=== PATIENT | male | born 1980 | race Caucasian/White ===

== ENCOUNTER 2017-12-10 11:25 | Emergency (ER) | payer OTHER ==
--- NOTE | 2017-12-10 12:10 | ER Document Report ---
HPI - HPI Patient complains to provider of: Right hand numbness and weakness Onset: Last week Onset/Duration: Persistent Quality of pain: Achy Pain Level: 2 Context: Patient presents complaining of numbness and weakness to right forearm wrist and hand. Patient states he has had the symptoms for the past week. Patient states that he woke up with right hand weakness and an inability to fully extend his fingers. Patient is right-hand dominant. Patient does report having 3 previous shoulder surgeries on the right with the last performed 3 years ago. Patient does report having trigger finger surgery on the right hand involving fingers 2 and 3 7 years ago. Patient does report a history of previous TBI. Patient reports occasional migraines but denies any headache symptoms at this time. Associated Symptoms: Other - Right hand numbness and weakness. denies: Headache Exacerbated by: Denies Relieved by: Denies Similar symptoms previously: No Recently seen / treated by doctor: No - ROS ROS below otherwise negative: Yes Systems Reviewed and Negative: Yes All other systems reviewed and negative - CONSTITUTIONAL Constitutional: DENIES: Fever, Chills - NEURO Neurology: REPORTS: Weakness - Right hand. DENIES: Headache - CARDIOVASCULAR Cardiovascular: DENIES: Chest pain - GASTROINTESTINAL Gastrointestinal: DENIES: Nausea, Patient vomiting - MUSCULOSKELETAL Musculoskeletal: REPORTS: Extremity pain - Right forearm. DENIES: Back Pain, Neck Pain - DERM Skin Color: Normal Skin Problems: None Past Medical History - General Information source: Patient - Social History Smoking Status: Current Every Day Smoker Chew tobacco use (# tins/day): No Smoking Education Provided: Yes Frequency of alcohol use: None Drug Abuse: None Occupation: None Lives with: Spouse/Significant other Family History: Reviewed & Not Pertinent Patient has suicidal ideation: No Patient has homicidal ideation: No Neurological Medical History: Reports: Hx Migraine Renal/ Medical History: Denies: Hx Peritoneal Dialysis Psychiatric Medical History: Reports: Hx Anxiety, Hx Depression, Hx Post Traumatic Stress Disorder Traumatic Medical History: Reports: Hx Traumatic Brain Injury Past Surgical History: Reports: Hx Oral Surgery, Hx Orthopedic Surgery - Right shoulder, right hand Vertical Provider Document - CONSTITUTIONAL Agree With Documented VS: Yes Exam Limitations: No Limitations General Appearance: WD/WN, No Apparent Distress - INFECTION CONTROL TRAVEL OUTSIDE OF THE [place] IN LAST 30 DAYS: No - HEENT HEENT: Atraumatic, Normocephalic - NECK Neck: Normal Inspection - RESPIRATORY Respiratory: Breath Sounds Normal, No Respiratory Distress - CARDIOVASCULAR Cardiovascular: Regular Rate, Regular Rhythm Pulses: Normal: Radial - BACK Back: Normal Inspection - MUSCULOSKELETAL/EXTREMETIES Musculoskeletal/Extremeties: No Edema - NEURO Level of Consciousness: Awake, Alert, Appropriate Motor/Sensory: negative: No Motor Deficit, No Sensory Deficit Notes: Patient with weakened breaker up to right hand. Patient presents with inability to fully extend the fingers of the right hand. Patient able to flex right wrist but unable to fully extend the right wrist. Patient with numbness over the right thumb second and third fingers over the dorsal aspect of the right hand and dorsal aspect of right forearm. Patient able to oppose all fingers with the right thumb. When patient has hand pronated he is able to extend the fingers. - DERM Integumentary: Warm, Dry, No Rash Course - Re-evaluation Re-evalutation: 12/10/17 12:[address] Smart who agrees to evaluate patient. 12/10/17 12:12 Dr. Smart to bedside for examination. States patient has symptoms concerning for both radial and ulnar nerve deficit. Recommends noncontrasted head CT as well as consultation with orthopedics. 12/10/17 12:[address] Marin regarding patient presentation and diagnostic. Discussed patient's physical exam findings. Discussed concern about possible ulnar and radial nerve palsy. Does not recommend any immobilization at this time and advises follow-up in the office for further evaluation. 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 Marin or Dr. Mcwilliams, call the office today to make a follow -up appointment Forms: Smoking Cessation Education Referrals: JB MCWILLIAMS DO [ACTIVE STAFF] - Follow up as needed MARYCRUZ MARIN MD [ACTIVE STAFF] - Follow up tomorrow
--- NOTE | 2017-12-10 12:40 | RADIOLOGY REPORT (SQ) ---
EXAM DESCRIPTION: CT HEAD WITHOUT COMPLETED DATE/TIME: 12/10/2017 12:31 pm REASON FOR STUDY: r hand weakness, numbness COMPARISON: None. TECHNIQUE: Axial images acquired through the brain without intravenous contrast. Images reviewed wi th bone, brain and subdural windows. Additional sagittal and coronal reconstructions were generated. Images stored on PACS. All CT scanners at this facility use dose modulation, iterative reconstruction, and/or weight based d osing when appropriate to reduce radiation dose to as low as reasonably achievable (ALARA). [facility]: Dose Right [facility]: CareDose [facility]: Dose Right [facility]: Teradose 4D [facility]: [employer] RADIATION DOSE: CT Rad equipment meets quality standard of care and radiation dose reduction techniq ues were employed. CTDIvol: 53.2 mGy. DLP: 1070 mGy-cm. mGy. LIMITATIONS: None. FINDINGS: VENTRICLES: Normal size and contour. CEREBRUM: No masses. No hemorrhage. No midline shift. No evidence for acute infarction. Normal gra y/white matter differentiation. No areas of low density in the white matter. CEREBELLUM: No masses. No hemorrhage. No alteration of density. No evidence for acute infarction. EXTRAAXIAL SPACES: No fluid collections. No masses. ORBITS AND GLOBE: No intra- or extraconal masses. Normal contour of globe without masses. CALVARIUM: No fracture. PARANASAL SINUSES: No fluid or mucosal thickening. SOFT TISSUES: No mass or hematoma. OTHER: No other significant finding. IMPRESSION: NORMAL BRAIN CT WITHOUT CONTRAST. EVIDENCE OF ACUTE STROKE: NO. COMMENT: Quality ID # [id number]: Final reports with documentation of one or more dose reduction techniques (e.g., Automated exposure control, adjustment of the mA and/or kV according to patient size, use of iterative reconstruction technique) TECHNICAL DOCUMENTATION: JOB ID: [id number] [employer]- All Rights Reserved Reading location - IP/workstation name: [email or web address]
[2017-12-10 13:25] VITALS: BP 134/84
== END 2017-12-10 13:25 | disposition home or self-care (01) ==
LOC: ER 11:25
DX: G56.21 Lesion of ulnar nerve, right upper limb (principal); G56.31 Lesion of radial nerve, right upper limb; R20.0 Anesthesia of skin; R53.1 Weakness; M79.631 Pain in right forearm; Z98.890 Other specified postprocedural states; Z87.820 Personal history of traumatic brain injury; F17.200 Nicotine dependence, unspecified, uncomplicated
CPT/HCPCS: 70450; 99284